=== PATIENT | female | born 1980 | race Caucasian/White ===

== ENCOUNTER → 2021-06-11 | Day surgery (SDC) | payer OTHER ==
[~2021-06-11] VITALS: Ht 162.6 cm; Wt 63.5 kg
[~2021-06-11] MED LIST: IBUPROFEN800 MG PO; LOPRESSOR25 MG PO; NEURONTIN300 MG PO; PROVIGIL200 MG PO; SUBOXONE 8 MG-1 EACH PO; VIT C PO; [UNRECOGNIZED DRUG - OTHER] PO
[2021-06-11 10:00] LABS: HCG (URINE) SCREEN NEGATIVE (NEGATIVE)
[2021-06-11 10:23] LABS: EOSINOPHIL 6.3 % (0-5); HCT 37.3 % (37.0-47.0); HGB 12.5 g/dl (12.5-16.0); LYMPHOCYTE 31.1 % (15-48); MCH 31.6 pg (25.0-31.0); MCHC 33.5 g/dL (32.0-36.0); MCV 94.2 fL (78.0-100.0); MONOCYTE 8.7 % (0-12); MPV 11.1 fL (6.0-9.5); NEUTROPHIL 52.7 % (41-80); NRBC 0; PLT 177 K/uL (150-400); RBC 3.96 M/uL (4.20-5.40); RDW 12.4 % (11.5-14.0); WBC 6.1 K/uL (4.0-10.5)
[2021-06-11 20:23] LABS: BUN/CREAT RATIO (CALC) 20.3 RATIO; CREATININE 0.74 mg/dL (0.51-0.95); POTASSIUM 3.6 mmol/L (3.5-5.1)
== END | disposition home or self-care (01) ==
LOC: FAS 09:44
PROVIDERS: Oral & Maxillofacial Surgery
DX: K02.9 Dental caries, unspecified (principal); K04.7 Periapical abscess without sinus; E11.40 Type 2 diabetes mellitus with diabetic neuropathy, unspecified; F11.20 Opioid dependence, uncomplicated; I10 Essential (primary) hypertension; F17.290 Nicotine dependence, other tobacco product, uncomplicated; G89.29 Other chronic pain; Z88.5 Allergy status to narcotic agent; Z88.1 Allergy status to other antibiotic agents; Z91.040 Latex allergy status
CPT/HCPCS: D7140; D7210; D7310; 36415; 80048; 84703; 85025; 93005; J1100; J1885; J2250; J2405; J2704; J3010; J7120